=== PATIENT | female | born 1995 | race Caucasian/White ===

== ENCOUNTER 2017-10-27 22:48 | Inpatient (IN) | payer BC, MEDICAID ==
[2017-10-27] MEDS ORDERED: fentaNYL 300 MCG in Ropivacaine 200 ML IV ONE (23:52)
[2017-10-27] MEDS ORDERED: fentaNYL 100 MCG/2 ML SDV EPIDUR ONE (23:52)
[2017-10-28] MEDS ORDERED: Lactated Ringers 1,000 ML IV SCH
[2017-10-28] MEDS ORDERED: diphenhydrAMINE 50 MG/ML SDV IVPUSH PRN (00:30)
[2017-10-28] MEDS ORDERED: Lactated Ringers 500 ML IV ONE (00:30)
[2017-10-28] MEDS ORDERED: Naloxone 0.4 MG/ML SDV IVPUSH PRN (00:30)
[2017-10-28] MEDS ORDERED: Ondansetron 4 MG/2 ML SDV IVPUSH PRN (00:30)
[2017-10-28] MEDS ORDERED: Promethazine 25 MG/ML SDV IV PRN (00:30)
[2017-10-28] MEDS ORDERED: Naloxone 0.4 MG in Sodium Chloride 0.9% 100 ML IV PRN (00:30)
[2017-10-28] MEDS ORDERED: ePHEDrine 50 MG/ML SDV IVPUSH PRN (01:44)
[2017-10-28] MEDS ORDERED: Oxytocin 10 Units/1 ML SDV IM ONE (02:45)
[2017-10-28] MEDS ORDERED: Acetaminophen/Codeine 300-30 MG Tab PO PRN (02:53)
[2017-10-28] MEDS ORDERED: Witch Hazel Medicated Pads 40/Jar TOP PRN (02:53)
--- NOTE | 2017-10-28 02:58 | PCM.DEL ---
L & D Note - General Info Date of Service: 10/28/17 - Delivery Note Labor: Spontaneous Delivery Outcome: Livebirth Presentation: Left Occiput Anterior (AMI) Nuchal Cord: None Anesthesia Type: Epidural Episiotomy Type: None Laceration: None Placenta: Intact, Spontaneous Cord: 3 Vessels Resuscitation Needed: No Marcella: Suctioned - General Info Date of Service: 10/28/17 Subjective Update: 22-year-old G4 para 3 comes in spontaneous labor. As a spontaneous rupture membranes clear fluid. Delivered a baby girl AMI position with no nuchal cord. The last 500 and complications none. - Patient Data Vitals - Most Recent: Last Vital Signs Temp 98.3 F 10/27/17 23:30 Pulse 84 10/27/17 23:30 Resp 18 10/27/17 23:30 BP 139/78 10/27/17 23:30 Pulse Ox 99 10/27/17 23:30 Weight - Most Recent: 226 lb Med Orders - Current: Current Medications Acetaminophen/Codeine Phosphate (Tylenol With Codeine No.3 300mg/30mg) 1 tab PO Q4H PRN PRN Reason: Pain (moderate 4-6) Ephedrine Sulfate (Ephedrine Sulfate) 5 mg IVPUSH ASDIRECTED PRN PRN Reason: HYPOTENSION Ibuprofen (Motrin) 800 mg PO Q8H [facility] Kameron Geovanna (Tucks) 1 pad TOP ASDIRECTED PRN PRN Reason: Hemorrhoids - Exam General: Alert, Oriented Lungs: Normal Respiratory Effort Cardiovascular: Regular Rate GI/Abdominal Exam: Soft, Non-Tender, No Distention, Other (Abdomen gravid) (Female) Exam: Other (Cervix complete, 100% and +2 station.) Extremities: Normal Inspection Skin: Warm, Intact Neurological: No New Focal Deficit Psy/Mental Status: Alert, Normal Affect, Normal Mood - Problem List & Annotations (1) Vaginal delivery SNOMED Code(s): 320216903 Code(s): O80 - ENCOUNTER FOR FULL-TERM UNCOMPLICATED DELIVERY Status: Acute Current Visit: No - Problem List Review Problem List Initiated/Reviewed/Updated: Yes - My Orders Last 24 Hours: My Active Orders 10/27/17 22:58 Admission Status [Patient Status] [ADT] Routine 10/28/17 02:53 Patient Status [ADT] Routine May Shower [RC] ASDIRECTED Up ad Jazmin [RC] ASDIRECTED Vital Signs [RC] PFP Acetaminophen/Codeine [Tylenol with Codeine No.3 300MG/30MG] 1 tab PO Q4H PRN Witch Geovanna [Tucks] 1 pad TOP ASDIRECTED PRN Assess Lochia [WOMSER] Per Unit Routine Assess Uterine Involution [WOMSER] Per Unit Routine Perineal Care [OM.PC] Per Unit Routine Sitz Bath [OM.PC] Per Unit Routine Resuscitation Status Routine 10/28/17 02:54 Ice Therapy [OM.PC] Per Unit Routine Peripheral IV Discontinue [OM.PC] Routine 10/28/17 03:00 Ibuprofen [Motrin] 800 mg PO Q8H 10/28/17 05:11 HEMOGLOBIN/HEMATOCRIT,HH [HEME] AM 10/28/17 Breakfast Regular Diet [DIET] - Plan Plan:: Normal routine orders. Please see orders.
[2017-10-28] MEDS: Ibuprofen 800 MG Tab PO SCH ×3 (03:42→19:10)
[2017-10-28] MEDS: Prenatal Multivitamin with Calcium/Folic Acid/Fe Fumarate Cap PO SCH (09:49)
[2017-10-29] MEDS: Ibuprofen 800 MG Tab PO SCH (03:08)
[2017-10-29 08:11] VITALS: BP 120/74
--- NOTE | 2017-10-29 08:12 | PCM.PNPP ---
- General Info Date of Service: 10/29/17 Admission Dx/Problem (Free Text): She without complaints. She says she would like a little Tylenol No. 3 for some occasional copy pain. Vaginal bleeding is decreased. - Patient Data Vital Signs - Most Recent: Last Vital Signs Temp 97.7 F 10/29/17 00:45 Pulse 68 10/29/17 00:45 Resp 18 10/29/17 00:45 BP 129/72 10/29/17 00:45 Pulse Ox 98 10/29/17 00:45 Weight - Most Recent: 226 lb Lab Results - Last 24 Hours: Laboratory Results - last 24 hr 10/28/17 Range/Units 06:45 Blood Type A NEGATIVE Gel Antibody Screen Negative Screen Negative Rhogam Indicated Yes, baby rh pos Med Orders - Current: Current Medications Acetaminophen/Codeine Phosphate (Tylenol With Codeine No.3 300mg/30mg) 1 tab PO Q4H PRN PRN Reason: Pain (moderate 4-6) Last Admin: 10/28/17 13:37 Dose: 1 tab Lactated Ringer's (Ringers, Lactated) 1,000 mls @ 125 mls/hr IV ASDIRECTED [facility] Last Admin: 10/28/17 01:43 Dose: 125 mls/hr Ibuprofen (Motrin) 800 mg PO Q8H [facility] Last Admin: 10/29/17 03:08 Dose: 800 mg Multivit/Folic Acid/Iron (-U) 1 each PO DAILY [facility] Last Admin: 10/28/17 09:49 Dose: 1 each Witch Geovanna (Tucks) 1 pad TOP ASDIRECTED PRN PRN Reason: Hemorrhoids Discontinued Medications Diphenhydramine HCl (Benadryl) 25 mg IVPUSH ASDIRECTED PRN PRN Reason: PRURITUS Ephedrine Sulfate (Ephedrine Sulfate) 5 mg IVPUSH ASDIRECTED PRN PRN Reason: HYPOTENSION Fentanyl (Sublimaze) 100 mcg EPIDUR .STK-MED ONE Stop: 10/27/17 23:53 Naloxone HCl 0.4 mg/ Sodium (Chloride) 101 mls @ 25 mls/hr IV ASDIRECTED PRN PRN Reason: PER ORDER OF ANESTHESIA Lactated Ringer's (Ringers, Lactated) 500 mls @ 999 mls/hr IV ONETIME ONE Stop: 10/28/17 01:00 Last Admin: 10/27/17 23:30 Dose: 999 mls/hr Fentanyl 300 mcg/ Ropivacaine 206 mls @ as directed IV .STK-MED ONE Stop: 10/27/17 23:53 Naloxone HCl (Narcan) 0.1 mg IVPUSH ASDIRECTED PRN PRN Reason: RESPIRATORY STATUS Ondansetron HCl (Zofran) 4 mg IVPUSH Q6H PRN PRN Reason: NAUSEA/VOMITING Oxytocin (Pitocin) 10 unit IM ONETIME ONE Stop: 10/28/17 02:46 Last Admin: 10/28/17 02:45 Dose: 10 unit Promethazine HCl (Phenergan) 6.25 - 12.5 mg IV Q4H PRN PRN Reason: NAUSEA AND VOMITING - Interaction Support Person: - Recovery Exam Fundal Tone: Firm Fundal Level: At Umbilicus Fundal Placement: Midline Lochia Amount: Small Lochia Color: Rubra/Red Perineum Description: Intact, Minimal Bruising/Swelling Episiotomy/Laceration: None Bladder Status: Voiding Urinary Elimination: Not Voiding - Exam General: Alert, Oriented, Cooperative Lungs: Normal Respiratory Effort GI/Abdominal Exam: Other (Fundus firm) Extremities: No Pedal Edema Skin: Warm, Dry, Intact - Problem List & Annotations (1) Vaginal delivery SNOMED Code(s): 861691718 Code(s): O80 - ENCOUNTER FOR FULL-TERM UNCOMPLICATED DELIVERY Status: Acute Current Visit: No - Problem List Review Problem List Initiated/Reviewed/Updated: Yes - My Orders Last 24 Hours: My Active Orders 10/28/17 09:00 Vit/FA/Fe Fumarate [-U] 1 each PO DAILY 10/29/17 08:11 Ready for Discharge [RC] PER UNIT ROUTINE - Plan Plan:: DC to home.
--- NOTE | 2017-10-29 08:14 | PCM.DCSUM1 ---
Discharge Summary - Hospital Course Free Text/Narrative:: Hospital course-patient did well and was breast-feeding and that was going well. Bleeding slowed down nicely. She has no concerns and will be discharged today. Brief History: 22-year-old G4 para 3 comes in in spontaneous labor as a clear rupture members. Delivers a healthy baby girl without nuchal cord. See delivery note. - Discharge Data Discharge Date: 10/29/17 Discharge Disposition: Home, Self-Care 01 Condition: Good - Discharge Diagnosis/Problem(s) (1) Vaginal delivery SNOMED Code(s): 810385971 ICD Code: O80 - ENCOUNTER FOR FULL-TERM UNCOMPLICATED DELIVERY Status: Acute Current Visit: No - Patient Instructions Diet: Regular Diet as Tolerated Activity: As Tolerated Driving: May Drive Today Showering/Bathing: May Shower Notify Provider of: Fever, Increased Pain, Drainage, Nausea and/or Vomiting Other/Special Instructions: 1. Recheck in 6 weeks for check. - Discharge Plan Prescriptions/Med Rec: Acetaminophen/Codeine [Tylenol with Codeine No.3 300MG/30MG] 1 tab PO Q4H PRN # 15 tablet PRN Reason: Pain (Moderate 4-6) Home Medications: Home Meds Acetaminophen/Codeine [Tylenol with Codeine No.3 300MG/30MG] 1 tab PO Q4H PRN # 15 tablet 10/29/17 [Rx] Vit/FA/Fe Fumarate [-U] 1 each PO DAILY cap 10/29/17 [Rx] Patient Handouts: Shaken Baby Syndrome, Exclusive , Vaginal Delivery, Depression and Baby Blues, Baby Safe Sleeping Information, Hand Washing, [id number], [place] Baby Care, Home Care Instructions for Mom, Smoking Cessation, Tips for Success, SIDS Prevention Information, Baby Safe Sleeping Information, [id number], Care After Vaginal Delivery, Rear -Facing -Only Child Safety Seat - Discharge Summary/Plan Comment DC Time >30 min.: No Discharge Summary/Plan Comment: Recheck in 6 weeks for care. - Patient Data Vitals - Most Recent: Last Vital Signs Temp 97.9 F 10/29/17 07:57 Pulse 63 10/29/17 07:57 Resp 16 10/29/17 07:57 BP 120/74 10/29/17 07:57 Pulse Ox 99 10/29/17 07:57 Weight - Most Recent: 226 lb Lab Results - Last 24 hrs: Laboratory Results - last 24 hr 10/28/17 Range/Units 06:45 Blood Type A NEGATIVE Gel Antibody Screen Negative Screen Negative Rhogam Indicated Yes, baby rh pos Med Orders - Current: Current Medications Acetaminophen/Codeine Phosphate (Tylenol With Codeine No.3 300mg/30mg) 1 tab PO Q4H PRN PRN Reason: Pain (moderate 4-6) Last Admin: 10/28/17 13:37 Dose: 1 tab Lactated Ringer's (Ringers, Lactated) 1,000 mls @ 125 mls/hr IV ASDIRECTED [facility] Last Admin: 10/28/17 01:43 Dose: 125 mls/hr Ibuprofen (Motrin) 800 mg PO Q8H [facility] Last Admin: 10/29/17 03:08 Dose: 800 mg Multivit/Folic Acid/Iron (-U) 1 each PO DAILY [facility] Last Admin: 10/28/17 09:49 Dose: 1 each Witch Geovanna (Tucks) 1 pad TOP ASDIRECTED PRN PRN Reason: Hemorrhoids Discontinued Medications Diphenhydramine HCl (Benadryl) 25 mg IVPUSH ASDIRECTED PRN PRN Reason: PRURITUS Ephedrine Sulfate (Ephedrine Sulfate) 5 mg IVPUSH ASDIRECTED PRN PRN Reason: HYPOTENSION Fentanyl (Sublimaze) 100 mcg EPIDUR .STK-MED ONE Stop: 10/27/17 23:53 Naloxone HCl 0.4 mg/ Sodium (Chloride) 101 mls @ 25 mls/hr IV ASDIRECTED PRN PRN Reason: PER ORDER OF ANESTHESIA Lactated Ringer's (Ringers, Lactated) 500 mls @ 999 mls/hr IV ONETIME ONE Stop: 10/28/17 01:00 Last Admin: 10/27/17 23:30 Dose: 999 mls/hr Fentanyl 300 mcg/ Ropivacaine 206 mls @ as directed IV .STK-MED ONE Stop: 10/27/17 23:53 Naloxone HCl (Narcan) 0.1 mg IVPUSH ASDIRECTED PRN PRN Reason: RESPIRATORY STATUS Ondansetron HCl (Zofran) 4 mg IVPUSH Q6H PRN PRN Reason: NAUSEA/VOMITING Oxytocin (Pitocin) 10 unit IM ONETIME ONE Stop: 10/28/17 02:46 Last Admin: 10/28/17 02:45 Dose: 10 unit Promethazine HCl (Phenergan) 6.25 - 12.5 mg IV Q4H PRN PRN Reason: NAUSEA AND VOMITING *Q Meaningful Use (DIS) - VTE *Q VTE Criteria *Q: - Stroke *Q Stroke Criteria *Q: - AMI *Q AMI Criteria *Q:
[2017-10-29] MEDS: Prenatal Multivitamin with Calcium/Folic Acid/Fe Fumarate Cap PO SCH (08:57)
== END 2017-10-29 09:10 | disposition home or self-care (01) | DRG 775 ==
LOC: FB.OBCHECK 22:48 → FB.OB 22:49 → FB.OBCHECK 23:18 → UNDOADMIN 23:20 → FB.OB 23:20 → UNDODISIN 10-29 09:10
PROVIDERS: ADMIT Family Medicine; ATTEND Family Medicine
PROC: 10E0XZZ Delivery of Products of Conception, External Approach (ICD-10-PCS; principal; 2017-10-27)
PROC: 00HU33Z Insertion of Infusion Device into Spinal Canal, Percutaneous Approach (ICD-10-PCS; 2017-10-27)
PROC: 3E0R3BZ Introduction of Anesthetic Agent into Spinal Canal, Percutaneous Approach (ICD-10-PCS; 2017-10-27)
DX: O42.02 Full-term premature rupture of membranes, onset of labor within 24 hours of rupture (principal); Z3A.40 40 weeks gestation of pregnancy; Z37.0 Single live birth; O99.334 Smoking (tobacco) complicating childbirth
CPT/HCPCS: 36415; 59409; 85014; 85018; 85460; 86850; 86900; 86901; A9270-GY; J2590; J2790; J2795; J3010; J7120

== ENCOUNTER 2018-01-29 17:45 | Emergency (ER) | payer MEDICAID ==
[2018-01-29 18:44] VITALS: BP 152/91
[2018-01-29] MEDS ORDERED: Acetaminophen/HYDROcodone 325-5 MG Tab PO PRN (19:03)
[2018-01-29] MEDS ORDERED: Acetaminophen/HYDROcodone 325-5 MG Tab PO ONE ×2 (19:05→19:19)
[2018-01-29] MEDS ORDERED: HYDROcodone/Ibuprofen 7.5-200 MG Tab PO SCH (19:15)
--- NOTE | 2018-01-31 15:15 | ER ---
DATE SEEN: 01/29/2018 TIME SEEN: The patient was seen at 1830 hours. HISTORY OF PRESENT ILLNESS: This 22-year-old with a young baby at home, was breast-feeding, comes in with pain to tooth #2 and #29. The #29 tooth had anterior buccal crown fracture for a long time and the other tooth #2 has been sore for the last six weeks. Both have gotten worse for the last 2 days. The patient smokes half a pack plus a day. No diabetes, heart disease, or other serious illnesses. MEDICATIONS: None. ALLERGIES: None. REVIEW OF SYSTEMS: Otherwise negative. She has mild acne. SOCIAL HISTORY: She is a woman who lives locally. PHYSICAL EXAMINATION: GENERAL: Overweight, mildly tender, mild acne on the face noted. She has moderate pain and discomfort. Smoking odor noted. VITAL SIGNS: Blood pressure 152/91, heart rate 67, respirations 14, oxygen saturation 100%, and temperature 36.6 degrees centigrade. HEENT: The patient has right lateral anterior buccal crown fracture, with old dentin discoloration on tooth #29, tooth #2 is tender to percussion. Multiple teeth with moderate pyorrhea of the teeth noted. Multiple teeth are missing and are in for various repair with enamel erosion, noted several. No mandibular pain, except for the tooth itself. No sign of gingival infection or surrounding infection or epulis. NECK: Minimal cervical adenopathy. Neck supple. LUNGS: Clear without rales. HEART: S1, S2. No murmur. ABDOMEN: Nontender. No abnormality. No increased abdominal girth. EXTREMITIES: No edema of lower extremities. ASSESSMENT: 1. Teeth #2 and #24 are carious and probably infected and need dental repair. She states [facility] [place] [facility]. I advised her to seek out a different [facility] at different locations, it will require her to call them. Nurses gave a list of different [facility] locations. 2. Possible infection of teeth. PLAN: Use Amoxil 500 mg t.i.d., 30 tablets; also was given 1 tablet of hydrocodone now, and she has one for the evening. Otherwise, she has no more than 12 tablets. To use those sparingly, otherwise, use 1000 mg of Tylenol and 600 of ibuprofen. If she is using the hydrocodone, she should dump her breast milk, otherwise, she will probably have some sedation of her baby. Dump her breast milk for the 6 hours involvement at present as she has used hydrocodone. /[id number] KATHERIN/JIMENEZ
== END 2018-01-29 19:22 | disposition home or self-care (01) ==
LOC: FB.ED 17:45
DX: K02.9 Dental caries, unspecified (principal)
CPT/HCPCS: 99282; A9270-GY

== ENCOUNTER 2018-06-02 07:20 | Emergency (ER) | payer MEDICAID, SELFPAY ==
[2018-06-02] MEDS ORDERED: Sodium Chloride 0.9% 10 ML Syringe FLUSH PRN (07:47)
[2018-06-02] MEDS ORDERED: Ketorolac 30 MG/ML SDV IVPUSH ONE (07:48)
--- NOTE | 2018-06-02 07:54 | EDM.PDOC ---
ED HPI GENERAL MEDICAL PROBLEM - General Chief Complaint: Genitourinary Problem Stated Complaint: LOWER BACK KINDEY Time Seen by Provider: 06/02/18 07:35 Source of Information: Reports: Patient, Family History Limitations: Reports: No Limitations - History of Present Illness INITIAL COMMENTS - FREE TEXT/NARRATIVE: Remi comes into [facility] ED with fevers, R CVA pain, and malaise. She was asx at HS , but developed sxs early this am. There is some nausea, but no vomiting, diarrhea, or sharmila voiding sxs. She is not , LMP 2 weeks ago. She was treated for a UTI last week. There is no PMH of stone disease. - Related Data Allergies Allergy/AdvReac Type Severity Reaction Status Date / Time No Known Allergies Allergy Verified 06/02/18 07:28 Home Meds: Home Meds Ciprofloxacin [Cipro XR] 500 mg PO BID #20 tab.er 06/02/18 [Rx] Past Medical History - Past Health History Medical/Surgical History: Denies Medical/Surgical History Other HEENT History: CYCST ON VOCAL CORDS REMOVED WHEN SHE WAS 9 YO. 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: , Spontaneous Dermatologic History: Reports: Other (See Below) Other Dermatologic History: acne - Past Surgical History Other HEENT Surgeries/Procedures: wisdom teeth, and cyst removed from vocal chords GI Surgical History: Reports: Cholecystectomy Other GI Surgeries/Procedures: 2013 Social & Family History - Family History Family Medical History: Noncontributory - Tobacco Use Smoking Status *Q: Current Every Day Smoker Years of Tobacco use: 8 Packs/Tins Daily: 0.7 - Caffeine Use Caffeine Use: Reports: Soda - Recreational Drug Use Recreational Drug Use: No ED ROS GENERAL - Review of Systems Review Of Systems: See Below Constitutional: Reports: Fever, Chills, Malaise, Weakness HEENT: Reports: No Symptoms Respiratory: Reports: No Symptoms Cardiovascular: Reports: No Symptoms Endocrine: Reports: No Symptoms GI/Abdominal: Reports: Nausea : Reports: Pain (R CVA) Musculoskeletal: Reports: Back Pain Skin: Reports: No Symptoms Neurological: Reports: No Symptoms Psychiatric: Reports: No Symptoms Hematologic/Lymphatic: Reports: No Symptoms Immunologic: Reports: No Symptoms ED EXAM, RENAL/ - Physical Exam Exam: See Below Exam Limited By: No Limitations General Appearance: Alert, WD/WN, Mild Distress, Obese Eye Exam: Bilateral Eye: EOMI, Normal Inspection, PERRL Ears: Normal External Exam Nose: Normal Inspection Throat/Mouth: Normal Inspection, Normal Oropharynx Head: Normocephalic Neck: Normal Inspection, Supple, Non-Tender Respiratory/Chest: Lungs Clear, Normal Breath Sounds Cardiovascular: Regular Rate, Rhythm, No Murmur GI/Abdominal: Normal Bowel Sounds, Soft, Non-Tender, No Organomegaly, No Distention, No Mass (Female) Exam: Deferred Rectal (Female) Exam: Deferred Back Exam: CVA Tenderness (R) Extremities: Normal Inspection, Normal Range of Motion, Non-Tender, No Pedal Edema Neurological: Alert, Oriented, CN II-XII Intact, Normal Cognition, Normal Gait, No Motor/Sensory Deficits Psychiatric: Normal Affect, Normal Mood Skin Exam: Warm, Dry, Intact, Normal Color Lymphatic: No Adenopathy Course - Vital Signs Text/Narrative:: Following assessment at the [facility] ED, an IV was started in the LUE, and 1L NS and 1L D5LR was administered over the next 2 hours, Levaquin 750 mg IV, and Toradol 30 mg IV. She was asx and afebrile at time of discharge. Last Recorded V/S: Last Vital Signs Temp 36.9 C 06/02/18 11:32 Pulse 85 06/02/18 11:32 Resp 14 06/02/18 11:32 BP 112/51 L 06/02/18 11:32 Pulse Ox 98 06/02/18 11:32 - Orders/Labs/Meds Orders: Active Orders 24 hr Category Date Time Status CULTURE BLOOD [BC] Urgent Lab 06/02/18 08:12 Received CULTURE BLOOD [BC] Urgent Lab 06/02/18 08:18 Received CULTURE URINE [RM] Stat Lab 06/02/18 07:49 Ordered UA W/MICROSCOPIC [URIN] Stat Lab 06/02/18 07:49 Ordered Blood Culture x2 Reflex Set [OM.PC] Urgent Oth 06/02/18 07:47 Ordered Peripheral IV Insertion Adult [OM.PC] Routine Oth 06/02/18 07:47 Ordered Labs: Laboratory Tests 06/02/18 06/02/18 06/02/18 Range/Units 07:49 08:12 08:12 WBC 12.7 H (4.5-12.0) X10-3/uL RBC 4.75 (3.23-5.20) x10(6)uL Hgb 13.9 (11.5-15.5) g/dL Hct 40.9 (30.0-51.3) % MCV 86.1 (80-96) fL MCH 29.3 (27.7-33.6) pg MCHC 34.0 (32.2-35.4) g/dL RDW 13.0 (11.5-15.5) % Plt Count 155 (125-369) X10(3)uL MPV 9.0 (7.4-10.4) fL Add Manual Diff Yes Neutrophils % (Manual) 82 (46-82) % Band Neutrophils % 4 (0-6) % Lymphocytes % (Manual) 12 L (13-37) % Monocytes % (Manual) 1 L (4-12) % Metamyelocytes % 1 H (0-0) % Sodium 139 (135-145) mmol/L Potassium 3.4 L (3.5-5.3) mmol/L Chloride 105 (100-110) mmol/L Carbon Dioxide 22 (21-32) mmol/L BUN 7 (7-18) mg/dL Creatinine 0.8 (0.55-1.02) mg/dL Est Cr Clr Drug Dosing 96.73 mL/min Estimated GFR (MDRD) > 60 (>60) BUN/Creatinine Ratio 8.8 L (9-20) Glucose 92 (80-116) mg/dL Calcium 7.7 L (8.6-10.2) mg/dL Urine Color Yellow (YELLOW) Urine Appearance Cloudy (CLEAR) Urine pH 6.0 (5.0-6.5) Ur Specific [place] 1.015 (1.010-1.025) Urine Protein Trace (NEGATIVE) mg/dL Urine Glucose (UA) Normal (NEGATIVE) mg/dL Urine Ketones Negative (NEGATIVE) mg/dL Urine Occult Blood Moderate H (NEGATIVE) Urine Nitrite Positive H (NEGATIVE) Urine Bilirubin Negative (NEGATIVE) Urine Urobilinogen Normal (NEGATIVE) mg/dL Ur Leukocyte Esterase Moderate H (NEGATIVE) Urine WBC Packed H (0) Meds: Medications Discontinued Medications Generic Name Dose Route Start Last Admin Trade Name Freq PRN Reason Stop Dose Admin Sodium Chloride 1,000 mls @ 999 mls/hr 06/02/18 08:00 06/02/18 08:01 Normal Saline IV 999 mls/hr ASDIRECTED [facility] Administration Levofloxacin/Dextrose 750 mg/ 150 mls @ 100 mls/hr 06/02/18 08:53 06/02/18 08 :58 Premix IV 06/02/18 10:22 100 mls/hr ONETIME ONE Administration Sodium Chloride 1,000 mls @ 500 mls/hr 06/02/18 09:00 06/02/18 10:32 Normal Saline IV 999 mls/hr ASDIRECTED [facility] Infusion Ketorolac Tromethamine 30 mg 06/02/18 07:48 06/02/18 08:01 Toradol IVPUSH 06/02/18 07:49 30 mg ONETIME ONE Administration Sodium Chloride 10 ml 06/02/18 07:47 06/02/18 08:03 Saline Flush FLUSH 10 ml ASDIRECTED PRN Administration Keep Vein Open Departure - Departure Time of Disposition: 12:00 Disposition: Home, Self-Care 01 Condition: Good Clinical Impression: Pyelonephritis - Discharge Information *PRESCRIPTION DRUG MONITORING PROGRAM REVIEWED*: Not Applicable *COPY OF PRESCRIPTION DRUG MONITORING REPORT IN PATIENT KAIT: Not Applicable Prescriptions: Ciprofloxacin [Cipro XR] 500 mg PO BID #20 tab.er Instructions: Pyelonephritis, Adult, [id number], Ciprofloxacin tablets Referrals: Jeremias Sanchez MD [Primary Care Provider] - Forms: ED Department Discharge Additional Instructions: VERY IMPORTANT THAT YOU FINISH ALL ANTIBIOTIC MEDICATION. DRINK LOTS OF WATER AND FLUIDS. AVOID CAFFEINE, ALCOHOL AND SUGARY DRINKS. FOLLOW UP WITH PRIMARY DOCTOR NEEDED. - Problem List & Annotations (1) Pyelonephritis SNOMED Code(s): 75587990 Code(s): N12 - TUBULO-INTERSTITIAL NEPHRITIS, NOT SPCF ACUTE OR CHRONIC Status: Acute Annotation/Comment:: I dispensed Cipro 500 mg bid starting tomorrow x 10 days, hydration, and monitor VS. - Problem List Review Problem List Initiated/Reviewed/Updated: Yes - My Orders Last 24 Hours: My Active Orders 06/02/18 07:47 Blood Culture x2 Reflex Set [OM.PC] Urgent Peripheral IV Insertion Adult [OM.PC] Routine 06/02/18 07:49 CULTURE URINE [RM] Stat UA W/MICROSCOPIC [URIN] Stat 06/02/18 08:12 CULTURE BLOOD [BC] Urgent 06/02/18 08:18 CULTURE BLOOD [BC] Urgent - Assessment/Plan Last 24 Hours: My Active Orders 06/02/18 07:47 Blood Culture x2 Reflex Set [OM.PC] Urgent Peripheral IV Insertion Adult [OM.PC] Routine 06/02/18 07:49 CULTURE URINE [RM] Stat UA W/MICROSCOPIC [URIN] Stat 06/02/18 08:12 CULTURE BLOOD [BC] Urgent 06/02/18 08:18 CULTURE BLOOD [BC] Urgent Plan: Follow up with PCP next week.
[2018-06-02] MEDS ORDERED: Sodium Chloride 0.9% 1,000 ML IV SCH ×2 (08:00→09:00)
[2018-06-02] MEDS ORDERED: Levofloxacin/Dextrose 5%-Water 750 MG in Premix Bag 1 BAG IV ONE (08:53)
[2018-06-02 11:47] VITALS: BP 112/51
== END 2018-06-02 11:44 | disposition home or self-care (01) ==
LOC: FB.ED 07:20
DX: N12 Tubulo-interstitial nephritis, not specified as acute or chronic (principal); F17.210 Nicotine dependence, cigarettes, uncomplicated
CPT/HCPCS: 36415; 80048; 81001; 85025; 87040; 87086; 87088; 87186; 96361; 96365; 96375; 99283; J1885; J1956; J7030; J7050